=== PATIENT | female | born 1965 ===

== ENCOUNTER 2021-11-20 06:00 | Outpatient (RCR) | payer BC, SELFPAY | END 2021-11-29 23:59 | disposition home or self-care (01) | LOC: MPT 06:00 | PROVIDERS: Visit Provider Nurse Practitioner | DX: M79.604 Pain in right leg (principal) | CPT/HCPCS: 97161 ==

== ENCOUNTER 2021-11-30 06:00 | Outpatient (RCR) | payer BC, SELFPAY | END 2021-12-30 23:59 | disposition home or self-care (01) | LOC: MPT 06:00 | PROVIDERS: Visit Provider Nurse Practitioner | DX: M79.604 Pain in right leg (principal) | CPT/HCPCS: 97110; 97140; 97530 ==